=== PATIENT | male | born 1990 | race Caucasian/White ===

== ENCOUNTER 2016-09-24 18:26 | Emergency (ER) | payer MEDICAID ==
[~2016-09-24] VITALS: Ht 170.2 cm; Wt 95.3 kg
[~2016-09-24 18:26] MED LIST: BENTYL GENERIC10 MG PO; PREDNISONE 20MG20 MG PO; TESSALON PERLE100 MG PO; ZITHROMAX Z PA250 MG PO; ZOFRAN ODT4 MG PO
[2016-09-24] MEDS ORDERED: CIPRO 500MG TA500 MG PO (19:00)
[2016-09-24] MEDS ORDERED: NAPROSYN500 M1 PO (19:01)
--- NOTE | 2016-09-24 19:02 | Emergency Room Report ---
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 N Clinical Suspician of Infection? N Mental Status: 1 - Regular (Normal Baseline) Sepsis Risk:Low Sepsis Risk Have you (or family members/close friends) recently traveled outside the [place]? N If Yes, where/when: Have you had exposure to infectious disease within the past month? N TB? Other? Specify: Source patient, RN notes reviewed Exam Limitations no limitations Comment right testicle has been red, swollen and tender for the past 2 to 3 days. NO history of trauma and no heavy work Cardiac Chest Pain Chest pain indicative of cardiac No ALLERGIES Coded Allergies: Penicillins (08/06/16) Home Medications Reported Medications No Known Home Medications History Medical History General CAD? No Angina: No MT: No Hypertension? No Hyperlipidemia? No CHF? No DVT? No PE? No COPD? No Asthma? No Anemia? No GERD? No Gastric ulcers? No GI Bleed? No Hernia? No Thyroid Problems? No Hypothyroidism? No CVA? No Seizures? No Diabetes? No Renal Insuffiency? No End Stage Renal Disease? No UTI? No Stones? No BPH? No GB Disease: No Nephritic Syndrome? No Asplenia? No Hepatitis? No Sickle Cell Disease? No Arthritis? No Migraines? No Cataracts? No Glaucoma? No MRSA? No HIV? No TB? No Anxiety? Yes Depression? No Cancer? No More? 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 Physical Exam Vital Signs Vital Signs Date Time Temp Pulse Resp B/P Pulse O2 O2 Flow FiO2 Ox Delivery Rate 09/24 1835 97.8 96 18 136/77 97 General Appearance normal appearance, WD/WN, no apparent distress Respiratory Status No: respiratory distress. 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 No Departure Departure Time of Disposition 1857 Disposition DC Home or Self Care(routine) Clinical Impression Primary Impression: Acute epididymitis Condition STABLE Referrals NO REFERRAL (Family): 3 Days-Call Office Patient Instructions DI for Epididymitis, Epididymitis Additional Instructions apply warm soaks and take meds as directed Discharge Counseling Counseled pt/family regarding diagnosis, medications/RX, home care, follow up needs Prescriptions Current Visit Scripts Ciprofloxacin HCl (Cipro 500MG TAB) 500 MG PO BID #20 TAB Naproxen (Naprosyn 500MG Tab) 500 MG PO BID #40 TAB ED Critical Care Critical Care No If Critical Care minutes are documented, the time involved in the performance of seperately reportable procedures was not counted toward critical care time documented. I directly delivered medical care to this critically ill and/or injured patient. Timely evaluation and treatment was necessary to address the significant organ system(s) dysfunction present in this patient. at 1901
--- NOTE | 2016-09-24 19:02 | Emergency Room Report ---
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 N Clinical Suspician of Infection? N Mental Status: 1 - Regular (Normal Baseline) Sepsis Risk:Low Sepsis Risk Have you (or family members/close friends) recently traveled outside the [place]? N If Yes, where/when: Have you had exposure to infectious disease within the past month? N TB? Other? Specify: Source patient, RN notes reviewed Exam Limitations no limitations Comment right testicle has been red, swollen and tender for the past 2 to 3 days. NO history of trauma and no heavy work Cardiac Chest Pain Chest pain indicative of cardiac No ALLERGIES Coded Allergies: Penicillins (08/06/16) Home Medications Reported Medications No Known Home Medications History Medical History General CAD? No Angina: No VA: No Hypertension? No Hyperlipidemia? No CHF? No DVT? No PE? No COPD? No Asthma? No Anemia? No GERD? No Gastric ulcers? No GI Bleed? No Hernia? No Thyroid Problems? No Hypothyroidism? No CVA? No Seizures? No Diabetes? No Renal Insuffiency? No End Stage Renal Disease? No UTI? No Stones? No BPH? No GB Disease: No Nephritic Syndrome? No Asplenia? No Hepatitis? No Sickle Cell Disease? No Arthritis? No Migraines? No Cataracts? No Glaucoma? No MRSA? No HIV? No TB? No Anxiety? Yes Depression? No Cancer? No More? 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 Physical Exam Vital Signs Vital Signs Date Time Temp Pulse Resp B/P Pulse O2 O2 Flow FiO2 Ox Delivery Rate 09/24 1835 97.8 96 18 136/77 97 General Appearance normal appearance, WD/WN, no apparent distress Respiratory Status No: respiratory distress. 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 No Departure Departure Time of Disposition 1857 Disposition DC Home or Self Care(routine) Clinical Impression Primary Impression: Acute epididymitis Condition STABLE Referrals NO REFERRAL (Family): 3 Days-Call Office Patient Instructions DI for Epididymitis, Epididymitis Additional Instructions apply warm soaks and take meds as directed Discharge Counseling Counseled pt/family regarding diagnosis, medications/RX, home care, follow up needs Prescriptions Current Visit Scripts Ciprofloxacin HCl (Cipro 500MG TAB) 500 MG PO BID #20 TAB Naproxen (Naprosyn 500MG Tab) 500 MG PO BID #40 TAB ED Critical Care Critical Care No If Critical Care minutes are documented, the time involved in the performance of seperately reportable procedures was not counted toward critical care time documented. I directly delivered medical care to this critically ill and/or injured patient. Timely evaluation and treatment was necessary to address the significant organ system(s) dysfunction present in this patient. at 1901
[2016-09-24 19:07] VITALS: BP 136/77
== END 2016-09-24 19:07 | disposition home or self-care (01) ==
LOC: ER 18:26
DX: N45.1 Epididymitis (principal)